=== PATIENT | male | born 1960 | race Caucasian/White ===

== ENCOUNTER 2016-11-09 09:08 | Inpatient (IN) | payer OTHER ==
[2016-10-18 14:05] LABS: HEMATOCRIT 43.8 % (40.0-51.0); HEMOGLOBIN 14.5 g/dL (13.6-17.8)
[2016-10-18 14:12] LABS: BUN (BLOOD UREA NITROGEN) 13 MG/DL (6-23); CALCIUM, SERUM 9.3 MG/DL (8.5-10.4); CHLORIDE, SERUM 100 MMOL/L (96-112); CO2 (CARBON DIOXIDE) 29 MMOL/L (24-34); CREATININE 1.14 MG/DL (0.70-1.30); GFR AFRICAN AMERICAN 82 ML/MIN (>=60); GFR NON AFRICAN AMERICAN 70 ML/MIN (>=60); GLUCOSE, SERUM 246 MG/DL (60-99); POTASSIUM, SERUM 4.2 MMOL/L (3.5-5.3); SODIUM, SERUM 139 MMOL/L (135-148)
--- NOTE | ~2016-11-09 | PREOPHP ---
PreOp History and Physical [facility] [address] [place]. [address] NAME: TRAM GONGORA : 56 STATUS : ADM IN PAT#: [id number] AGE: 56 ADM/REG DATE : 11/09/16 MR#: [id number] REPORT SERV DATE: 11/09/16 DICTATED BY: JORGE CANTU DATE: 11/09/16 REPORT STATUS : Draft TRANSCRIBED BY: LIO DATE: 11/09/16 CHIEF COMPLAINT: Back pain. HISTORY OF PRESENT ILLNESS: The patient is a 56-year-old with intractable pain in the lower back. He also complains of numbness and tingling. He has had a previous laminectomy and fusion at L4 through S1 at an outside institution, but continued to have progressive difficulties. After discussion of risks and benefits and informed consent, he elected to proceed with surgical intervention. REVIEW OF SYSTEMS: He denies chest pain, shortness of breath, and bowel or bladder changes. ALLERGIES: DENIED. HOME MEDICATIONS: Include Ambien, amlodipine, atenolol, baclofen, Plavix, Flexeril, enalapril, gabapentin, hydrochlorothiazide, hydrocodone, tramadol, tamsulosin, sertraline, and Nitrostat. FAMILY HISTORY: Noncontributory. PAST MEDICAL HISTORY: Gout, anxiety, hypertension, cardiac stents, depression, diabetes, high cholesterol, and metal implants. PHYSICAL EXAMINATION: VITAL SIGNS: Height 5 feet 9 inches. GENERAL: The patient is healthy appearing. No acute distress. PSYCHIATRIC: Alert and oriented x3. Normal mood and affect. Gait is antalgic. VASCULAR: No extremity swelling. NEUROLOGIC: Strength in the lower extremities remains globally intact. No focal deficits. HEART: Regular rate and rhythm. LUNGS: Clear to auscultation. ABDOMEN: Soft, nontender, and nondistended. Good bowel sounds. BREASTS AND RECTAL: Both deferred. IMAGING: I have reviewed the plain x-rays as well as a CT scan of the lumbar spine. The patient had previous L4 through S1 instrumented fusion with subsequent removal of the instrumentation. The hardware has been removed. The patient continues to have L4 through S1 stenosis with nerve compression. He additionally has L3-L4 disk disease severe facet arthrosis and stenosis as well. ASSESSMENT: Prior fusion L4 through S1, recurrent stenosis L4 through S1, primary stenosis L3-L4 with disc disease and facet arthrosis, failed conservative treatment with intractable pain. PLAN: The patient presents today for surgical intervention. Consent was obtained. All questions were answered. He is ready to proceed with surgery. PreOp History and Physical [address] [address] NAME: TRAM GONGORA : 56 STATUS : ADM IN PAT#: [id number] AGE: 56 ADM/REG DATE : 11/09/16 MR#: [id number] REPORT SERV DATE: 11/09/16 DICTATED BY: JORGE CANTU DATE: 11/09/16 REPORT STATUS : Draft TRANSCRIBED BY: MODMoreno DATE: 11/09/16 REGINA/LIO Jorge Cantu DO / [id number] CC: DO NEVA Henning LISA M
--- NOTE | ~2016-11-09 | OP ---
Record Of Operation [facility] [address] [place]. [address] NAME: TRAM GONGORA : 56 STATUS : ADM IN PAT#: [id number] AGE: 56 ADM/REG DATE : 11/09/16 MR#: [id number] REPORT SERV DATE: 11/09/16 DICTATED BY: JORGE RAMOS DATE: 11/09/16 REPORT STATUS : Draft TRANSCRIBED BY: MODL DATE: 11/09/16 DATE OF PROCEDURE: 11/09/2016 PREOPERATIVE DIAGNOSES: 1. Recurrent stenosis L4 through S1, status post previous L4 through S1 fusion, which appeared solid. 2. L3-4 disk disease, L3 stenosis, lumbar radiculopathy. POSTOPERATIVE DIAGNOSES: 1. Recurrent stenosis L4 through S1, status post previous L4 through S1 fusion, which appeared solid. 2. L3-4 disk disease, L3 stenosis, lumbar radiculopathy. PROCEDURE: Revision L4 through S1 laminectomy and bilateral foraminotomies, primary laminectomy L3-L4 posterolateral fusion bilaterally, L3-L4 spinal instrumentation using Medtronic pedicle screws, local morcellized autograft and allograft bone matrix, neuromonitoring, intraoperative O-arm CT scan with computer navigation. SURGEON: Jorge Ramos DO. ANESTHESIA: General. ESTIMATED BLOOD LOSS: 550 mL. COMPLICATIONS: None. INDICATIONS: The patient is a 56-year-old with intractable back and leg pain. Failed conservative treatment. After discussion of risks and benefits, elected to proceed with surgery. PROCEDURE IN DETAIL: I identified the patient in the holding area. Consent was obtained. Went to the operating room. Underwent general anesthesia with endotracheal intubation. Prepped and draped in the usual sterile fashion. Operative safety pause was performed, and then we proceeded. A midline longitudinal incision was made at L3 down to S1 taken down through the fascial layer. Paraspinous muscles elevated, self-retaining retractors were placed. O-arm registration frame was placed on the iliac crest. O-arm was brought in for intraoperative CT scan. Computer registration materials were verified. Under computer guidance, pedicle screws bilaterally were placed at L3 and L4 using Medtronic pedicle screws. O-arm was brought back in to verify good placement. Rongeur was used to remove spinous process and underlying lamina at the L3 and L4 level. Kerrison removed remaining lamina and ligamentum flavum and performed foraminotomies and partial facetectomies L3-L4. There was a very large amount of scar and bone causing stenosis from L4 down through S1 that was removed with a Kerrison. Each of the nerves from L3 through S1 was identified and free of compression at the end of the case. Irrigation performed. Rods were then contoured to appropriate shape and length, placed over the screws at L3-L4. Set screws placed and final tightened. A high-speed decorticating gaye was used to decorticate the remaining bony Record Of Operation [address] [address] NAME: TRAM GONGORA : 56 STATUS : ADM IN PAT#: [id number] AGE: 56 ADM/REG DATE : 11/09/16 MR#: [id number] REPORT SERV DATE: 11/09/16 DICTATED BY: JORGE RAMOS DATE: 11/09/16 REPORT STATUS : Draft TRANSCRIBED BY: MODL DATE: 11/09/16 surfaces at L3-L4. Irrigation performed. Hemostasis achieved. Local morcellized autograft and allograft bone matrix were packed over the decorticated surfaces L3-L4. A gram of vancomycin powder sprinkled over the surgical wound after irrigation was performed. A subfascial drain was placed. Layered closure performed. Sterile dressings applied. The patient awoke and extubated, taken to the recovery room in stable condition. OPERATIVE FINDINGS: L3 through S1 stenosis, L3-L4 disk disease. No sustained neuromonitoring alerts occurred. REGINA/LIO Jorge Ramos DO / [id number] CC: DO NEVA Henning LISA M
--- NOTE | ~2016-11-09 | CN ---
Consultation Report [facility] [address] [place]. [address] NAME: TRAM GONGORA : 56 STATUS : ADM IN PAT#: [id number] AGE: 56 ADM/REG DATE : 11/09/16 MR#: [id number] REPORT SERV DATE: 11/10/16 DICTATED BY: KRISTINE BUTLER DATE: 11/09/16 REPORT STATUS : Draft TRANSCRIBED BY: MODL DATE: 11/09/16 CONSULTATION DATE OF CONSULTATION: 11/09/2016 REASON FOR CONSULTATION: Consulted for diabetes management, coronary artery disease, and hypertension management. IDENTIFYING DATA: 1. PCP is Luana Sanabria, family nurse practitioner. 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 Deal for which he no longer sees. 3. Orthopedist in the past, he has previously seen Dr. Darrick Miller and Dr. Zak Gotti and now is presenting to Dr. Jorge Ramos. HISTORY OF PRESENT ILLNESS: This is a pleasant 56-year-old male, who presents to Dr. Ramos with complaints of intractable lower back pain with numbness and tingling in the lower extremities. The patient previously had a laminectomy and fusion at L4 through S1 at an outside facility, but has had progressive difficulties. In fact, he is previously had a posterior lumbar fusion in 2014 with the hardware actually removed in 2016 and now being seen by Dr. Ramos for which he is status post revision of L4-S1 laminectomy and bilateral foraminotomies, primary laminectomy L3-L4, posterior lateral lumbar fusion on 11/09/2016. The patient has a history of hypertension, previous cardiac stents, depression, diabetes for which he is on oral medication, high cholesterol. We are being consulted to specifically manage his blood sugars postoperatively, his hypertension, and other health issues are presently under control with his home medications. The patient's history was obtained through interview with the patient and his . There is no information in [facility] and [facility] because the patient has not been at our facility before. PAST MEDICAL HISTORY: 1. Gout. 2. Anxiety/depression. 3. Hypertension. 4. Cardiac stents. 5. Diabetes, type 2. 6. High cholesterol. 7. Hemorrhoids. 8. Prostate problems. 9. Kidney stone x1. 10.Arthritis. 11.Herniated disk. 12.Wears glasses. Consultation Report [facility] [address] [place]. [address] NAME: TRAM GONGORA : 56 STATUS : ADM IN PAT#: [id number] AGE: 56 ADM/REG DATE : 11/09/16 MR#: [id number] REPORT SERV DATE: 11/10/16 DICTATED BY: KRISTINE BUTLER DATE: 11/09/16 REPORT STATUS : Draft TRANSCRIBED BY: LIO DATE: 11/09/16 13.Chronic lumbar pain. HOME MEDICATIONS: 1. Norvasc 10 mg p.o. daily. 2. Aspirin 81 mg p.o. daily. 3. Tenormin 50 mg p.o. at bedtime. 4. Baclofen 10 mg p.o. three times a day p.r.n. 5. Plavix 75 mg p.o. daily. 6. Colchicine 0.6 mg p.o. p.r.n. 7. Vasotec 20 mg p.o. twice a day. 8. Neurontin 300 mg p.o. twice a day. 9. Lopid 600 mg p.o. at bedtime. 10.Glucovance 2.5/500 one tablet p.o. twice a day. 11.Hydrochlorothiazide 25 mg p.o. daily. 12.[place] 10/325 one tab, p.o. every 6 hours p.r.n. for pain. 13.Atarax 25 mg p.o. every eight hours p.r.n. for anxiety. 14.Mobic 15 mg p.o. daily. 15.Remeron 30 mg p.o. at bedtime. 16.Zoloft 100 mg p.o. daily at night. 17.Flomax 0.4 mg p.o. at night. 18.Ambien 10 mg p.o. at bedtime. ALLERGIES: NO KNOWN ALLERGIES, BUT THE PATIENT PREVIOUSLY HAS A RASH TO HIS UPPER CHEST AND ARMS, STATUS POST LUMBAR SURGERY. HE HAS BEEN GETTING ANCEF AND ORTHOPEDIST HAS DISCONTINUED ANCEF FOR NOW AND PLACED HIM ON VANCOMYCIN. SOCIAL HISTORY: The patient is for 41 years. He was a previous smoker and quit smoking cigarettes in 1986. He has two children grown, one male, one female. He has four grandchildren. Alcohol use is very rare. Lives in a one-level home. He has no problems with disability getting around his home. 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 FAMILY HISTORY: Father had back problems and back surgery and positive for hypertension. Mother had hypertension and was diabetic. One sister, who is diabetic. One brother, who is healthy with no problems. SURGICAL HISTORY: 1. Cardiac cath in 2012 and cardiac stents x2, 02/[address] Deal. 2. Tonsillectomy. 3. Herniated disk surgery, approximately 2010. 4. Right knee surgery for torn meniscus. 5. Posterior lumbar fusion in 2014 with the hardware having to be removed in 2016. 6. Right elbow surgery. 7. Colonoscopy in 2008. REVIEW OF SYSTEMS: Consultation Report [address] [place]. [address] NAME: TRAM GONGORA : 56 STATUS : ADM IN [facility]#: [id number] AGE: 56 ADM/REG DATE : 11/09/16 MR#: [id number] REPORT SERV DATE: 11/10/16 DICTATED BY: KRISTINE BUTLER DATE: 11/09/16 REPORT STATUS : Draft TRANSCRIBED BY: LIO DATE: 11/09/16 Negative other than what is included in the HPI. The patient has no shortness of breath. No complaints of nausea or vomiting. No fever. No chest pain. No abdominal pain. Displays no agitation or confusion. PHYSICAL EXAMINATION: VITAL SIGNS: From today, blood pressure 101/41, respiratory rate 16, heart rate 78, O2 saturation 97%. Retaken blood pressure at 8 o'clock displayed a blood pressure of 135/67. GENERAL: The patient is a pleasant 56-year-old male, resting in bed. No acute distress. NEURO: His head is atraumatic, normocephalic. He is alert and oriented x3. His cranial nerves 2 through 12 are grossly intact. His mood is appropriate. NECK: Supple. His trachea is midline. No JVD. No obvious thyromegaly or lymphadenopathy. EENT: Sclerae are nonicteric. Pupils are equal, reactive to light. His nares are patent. His mucous membranes are moist. His tongue is midline. No deviation. His soft palate rises equally on phonation. CHEST: No pain with palpation. LUNGS: Clear to auscultation bilaterally with normal respiratory effort. He has no increased work of breathing with conversation. I do note a reddened rash area across his chest and upper arms. The patient was previously on Ancef postoperatively and orthopedist has now discontinued that and placed him on vancomycin and the patient will receive a dose of Benadryl p.o. Cardiovascular: S1, S2. No obvious murmurs, rubs, or gallops. The patient is on defensive monitoring, displays a sinus rhythm with a rate of 78. ABDOMEN: Soft, nontender with active bowel sounds. No palpable organomegaly. Last bowel movement was on 11/08/2016. EXTREMITIES: Normal distal pulses. No edema. No calf tenderness. He has SCDs and TEDs in place. SKIN: Warm and dry. No rashes or lesions. Normal color and turgor. PSYCH: The patient is pleasant and cooperative. Appropriate mood and affect. Surgical wound site dressing is clean, dry, and intact. The patient has a Davol drain and compressed with sanguineous drainage noted in it. LABORATORY DATA: Sodium 140, potassium 4.1, chloride 104, BUN 19, creatinine 1.23, GFR 75, glucose 197, calcium 8.5. White blood cells 7.5, hemoglobin 12.8, hematocrit 38.9, platelets 269. Blood sugar checks were 197 and presently 205. On 10/18/2016, the patient had an EKG that showed normal sinus rhythm with a rate at 66. ASSESSMENT AND PLAN: 1. Diabetes, type 2. The patient is on an oral diabetic with metformin and that will be held for now. He is on Glucovance normally at home. He says he checks his blood sugars twice a day, the average varies. This morning before surgery, his blood sugar was 160. He is on an 1800 calorie ADA diet. We will have a adaptive physical educator to discuss blood sugar monitoring and diet with him. His blood sugars will be before meals and at bedtime. We will do one check at 02:[address] him on a level 2 Consultation Report [facility] [id number] [facility] [place]. [address] NAME: TRAM GONGORA : 56 STATUS : ADM IN [facility]#: [id number] AGE: 56 ADM/REG DATE : 11/09/16 MR#: [id number] REPORT SERV DATE: 11/10/16 DICTATED BY: KRISTINE BUTLER DATE: 11/09/16 REPORT STATUS : Draft TRANSCRIBED BY: LIO DATE: 11/09/16 sliding scale insulin per protocol. We will check a hemoglobin A1c in the morning and hold Glucovance for now. 2. Hypertension. This patient does have a history of coronary artery disease with stents in 2011. Initially seen by Dr. Deal. He is managed only by his PCP at presently, [facility], and he is normally on Plavix and aspirin at home, but postsurgery his Plavix and aspirin are on hold. His blood pressure is under control at the present time. We will continue his medications in the a.m. though of the Norvasc, Tenormin, Vasotec, and his HCTZ. 3. Anxiety/depression. We are aware. We will continue the patient's home medications of Atarax p.r.n. for anxiety and Remeron and Zoloft. 4. Hyperlipidemia. Aware. We will continue the patient's Lopid. 5. A.m. labs will be obtained, BMP, magnesium, CBC, and hemoglobin A1c. I have discussed with the patient and his that he will be off Glucovance for now, and we will cover his blood sugars with sliding scale of insulin and obtain a hemoglobin A1c for which he is unaware what his level is normally. They are in agreement with his care. The hospitalist group would like to thank you for this consultation. Please let us know if we can be of any further assistance. RADHA Kristine Butler NP / [id number] CC: Jorge Ramos, DO Luana Sanabria
[~2016-11-09 09:08] MED LIST: AMB10 PO; ASAB PO; AT25 PO; ATEN50 PO; COLCH6 PO; FLOMAX4 PO; GLUCOV2.5 PO; HYDROCHLOROT25 MG PO; LIOR10 PO; LOPID6 PO; MOBIC15 MG PO; NEUR300 PO; NORCO1 TAB PO; NORV10 PO; PLAVIX PO; REMERON30 MG PO; VASOTEC20 MG PO; ZOL100 PO
[2016-11-09 16:34] LABS: BASOPHILS 0.4 %; BASOPHILS ABSOLUTE 0.03 10/3/uL (0.0-0.16); EOSINOPHILS 1.3 %; HEMATOCRIT 38.9 % (40.0-51.0); HEMOGLOBIN 12.8 g/dL (13.6-17.8); IMMATURE GRANULOCYTES 1.1 %; IMMATURE GRANULOCYTES ABSOLUTE 0.08 10/3/uL (0.0-0.11); LYMPHOCYTES 30.1 %; LYMPHOCYTES ABSOLUTE 2.25 10/3/uL (0.67-4.30); MANUAL DIFF NO %; MEAN CORPUS HGB CONC 32.9 g/dL (32.0-36.0); MEAN CORPUSCULAR HEMOGLOB 26.6 pg (26.0-34.0); MEAN CORPUSCULAR VOLUME 80.7 fL (80-100); MEAN PLATELET VOLUME 10.5 fL (9.2-13.0); MONOCYTES 7.9 %; MONOCYTES ABSOLUTE 0.59 10/3/uL (0.21-1.20); NEUTROPHILS 59.2 %; NEUTROPHILS ABSOLUTE 4.42 10/3/uL (2.02-8.40); PLATELET COUNT 269 10/3/uL (150-400); RED CELL COUNT 4.82 10/6/uL (4.7-6.1); WHITE BLOOD CELLS 7.5 10/3/uL (4.5-10.5)
[2016-11-09 16:44] LABS: CALCIUM, SERUM 8.5 MG/DL (8.5-10.4); CHLORIDE, SERUM 104 MMOL/L (96-112); CO2 (CARBON DIOXIDE) 25 MMOL/L (24-34); CREATININE 1.23 MG/DL (0.70-1.30); GFR AFRICAN AMERICAN 75 ML/MIN (>=60); GFR NON AFRICAN AMERICAN 64 ML/MIN (>=60); GLUCOSE, SERUM 197 MG/DL (60-99); POTASSIUM, SERUM 4.1 MMOL/L (3.5-5.3); SODIUM, SERUM 140 MMOL/L (135-148)
[2016-11-09 16:45] LABS: BUN (BLOOD UREA NITROGEN) 19 MG/DL (6-23)
[2016-11-10 04:42] LABS: HEMOGLOBIN 10.6 g/dL (13.6-17.8); MEAN CORPUS HGB CONC 32.4 g/dL (32.0-36.0); MEAN CORPUSCULAR HEMOGLOB 26.2 pg (26.0-34.0); MEAN CORPUSCULAR VOLUME 80.9 fL (80-100); PLATELET COUNT 257 10/3/uL (150-400); RBC DISTRIBUTION WIDTH 15.4 % (12.0-16.0); RED CELL COUNT 4.04 10/6/uL (4.7-6.1); WHITE BLOOD CELLS 7.7 10/3/uL (4.5-10.5)
[2016-11-10 04:46] LABS: BUN (BLOOD UREA NITROGEN) 14 MG/DL (6-23); CALCIUM, SERUM 8.2 MG/DL (8.5-10.4); CHLORIDE, SERUM 103 MMOL/L (96-112); CO2 (CARBON DIOXIDE) 26 MMOL/L (24-34); CREATININE 1.12 MG/DL (0.70-1.30); GFR AFRICAN AMERICAN 83 ML/MIN (>=60); GFR NON AFRICAN AMERICAN 72 ML/MIN (>=60); GLUCOSE, SERUM 154 MG/DL (60-99); POTASSIUM, SERUM 3.8 MMOL/L (3.5-5.3); SODIUM, SERUM 139 MMOL/L (135-148)
[2016-11-10 04:53] LABS: HEMATOCRIT 32.7 % (40.0-51.0)
[2016-11-10 04:54] LABS: MANUAL DIFF YES %
[2016-11-10 06:17] LABS: BAND NEUTROPHILS 6 %; EOSINOPHILS 1 %; EOSINOPHILS ABSOLUTE (CALC) 0.08 10/3/uL (0.0-0.53); LYMPHOCYTES 23 %; LYMPHOCYTES ABSOLUTE (CALC) 1.77 10/3/uL (0.67-4.30); MONOCYTES 3 %; MONOCYTES ABSOLUTE (CALC) 0.23 10/3/uL (0.21-1.20); NEUTROPHILS ABSOLUTE (CALC) 5.62 10/3/uL (2.02-8.40); PLATELET ESTIMATE ADQ (ADEQUATE); RBC MORPHOLOGY NORM (NORMAL); SEGMENTED NEUTROPHIL (0) 67 %; TOTAL NUCLEATED CELLS 100
[2016-11-11 06:11] LABS: BUN (BLOOD UREA NITROGEN) 12 MG/DL (6-23); CALCIUM, SERUM 8.5 MG/DL (8.5-10.4); CHLORIDE, SERUM 101 MMOL/L (96-112); CO2 (CARBON DIOXIDE) 26 MMOL/L (24-34); CREATININE 1.17 MG/DL (0.70-1.30); GFR AFRICAN AMERICAN 79 ML/MIN (>=60); GFR NON AFRICAN AMERICAN 68 ML/MIN (>=60); POTASSIUM, SERUM 3.9 MMOL/L (3.5-5.3); SODIUM, SERUM 137 MMOL/L (135-148)
[2016-11-11 06:12] LABS: GLUCOSE, SERUM 263 MG/DL (60-99)
[2016-11-11] MEDS ORDERED: PCET PO (13:47)
== END 2016-11-11 14:44 | disposition home or self-care (01) | DRG 460 ==
LOC: SDC/OF 09:08 → 3SO 18:37
PROVIDERS: Internal Medicine; Orthopaedic Surgery
PROC: 0SG0071 Fusion of Lumbar Vertebral Joint with Autologous Tissue Substitute, Posterior Approach, Posterior Column, Open Approach (ICD-10-PCS; principal; 2016-11-09 11:30)
PROC: 4A11X4G Monitoring of Peripheral Nervous Electrical Activity, Intraoperative, External Approach (ICD-10-PCS; 2016-11-09 11:30)
DX: M51.16 Intervertebral disc disorders with radiculopathy, lumbar region (principal); I10 Essential (primary) hypertension; E11.9 Type 2 diabetes mellitus without complications; I25.10 Atherosclerotic heart disease of native coronary artery without angina pectoris; F41.9 Anxiety disorder, unspecified; F32.9 Major depressive disorder, single episode, unspecified; E78.5 Hyperlipidemia, unspecified
CPT/HCPCS: 80048; 82962; 83036; 83735; 85014; 85018; 85025; 87641; 88304; 88311; 97116-GP; 97161-GP; A9270-GY; C1713; J0690; J1170; J1644; J2250; J2270; J2370; J2405; J2710; J3010; J3370; P9045